=== PATIENT | male | born 1995 | race Caucasian/White ===

== ENCOUNTER 2020-09-07 19:42 | Emergency (ER) | payer OTHER, SELFPAY ==
--- NOTE | 2020-09-07 19:44 | ED.EYEPROB ---
HPI - Eye Problem General Chief complaint: Eye Problems Stated complaint: eye redness Time Seen by Provider: 09/07/20 19:45 Source: patient and RN notes reviewed Mode of arrival: ambulatory Limitations: no limitations History of Present Illness HPI Narrative: 25-year-old male presents with concern for right eye redness, irritation. Reports right eye was red for the last 3 days, and today became irritated and watery. Reports he slept in his contact lens before the redness started. He denies vision changes, however reports he has not been able to wear his contact lens in the right eye due to the redness and irritation. chief complaint: eye redness Related Data Allergies Allergy/AdvReac Type Severity Reaction Status Date / Time egg Allergy Unknown Dyspnea / Verified 08/20/17 10:04 SOB No Known Allergies Allergy Verified 08/02/12 13:03 Review of Systems Review of Systems: Narrative: CONSTITUTIONAL: Denies malaise, chills, sweats, or fever. EYES: Denies visual changes. Reports right eye irritation, redness, watery discharge. ENT: Denies rhinorrhea, congestion, sinus pain, otalgia or sore throat. SKIN: Denies rash or itching. NEUROLOGIC: Denies headache. All systems reviewed & are unremarkable except as noted in HPI and below PMFSH Social History Social History Smoking status: Heavy tobacco smoker Second hand tobacco smoke exposure: No Alcohol intake: never Comments At time of signature, agree with nursing past medical, surgical, social and family history. There is no relevant family history pertinent to the presenting complaint Exam Narrative: Exam Narrative: GENERAL: Well-appearing, well-nourished, and in no acute distress. HEAD: Normocephalic, atraumatic. EYES: PERRLA, left eye sclera and conjunctivae clear, and EOMI. No nystagmus. Right eye sclera conjunctive a injected with corneal abrasion noted at approximately 3:00 in relation to the pupil ENT: Mucous membranes moist. NECK: Supple. CHEST: No respiratory distress. Speaks in full sentences. HEART: Regular rate and rhythm. SKIN: Warm, dry, no rash. NEURO: Alert and oriented x3. PSYCH: Normal mood and affect Course Course Emergency Course: Patient is aware of diagnosis, understands and agrees to treatment plan. Anticipatory guidance given. Patient agrees to follow-up as directed and is aware of reasons to seek care at the emergency department. Portions of this record may have been created with voice recognition software Vital Signs Vital signs: Vital Signs Temperature 99.2 F 09/07/20 19:46 Pulse Rate 107 H 09/07/20 19:46 Respiratory Rate 16 09/07/20 19:46 Blood Pressure 132/76 09/07/20 19:46 Pulse Oximetry 99 09/07/20 19:46 Temperature 99.2 F 09/07/20 19:46 Pulse Rate 107 H 09/07/20 19:46 Respiratory Rate 16 09/07/20 19:46 Blood Pressure 132/76 09/07/20 19:46 Pulse Oximetry 99 09/07/20 19:46 Reviewed. MDM - Eye Problem MDM Narrative Medical decision making narrative: Consideration of the following conditions may be warranted for the presenting problem, they are not final diagnoses: Bacterial conjunctivitis, allergic conjunctivitis, viral conjunctivitis, foreign body, blepharitis, chalazion, hordeolum, corneal abrasion, preseptal cellulitis, orbital cellulitis. No evidence of proptosis, ophthalmoplegia, vision loss, pain with eye movement. Exam findings show no acute concerns or changes; patient is non-toxic appearing and is in no distress. Patient is appropriate for outpatient treatment and follow-up. Critical Care Time Critical Care Time Critical Care Time: No Discharge Plan Discharge Clinical Impression: Corneal abrasion Qualifiers: Encounter type: initial encounter Laterality: right Qualified Code(s): S05.01XA - Injury of conjunctiva and corneal abrasion without foreign body, right eye, initial encounter Patient Disposition: Home, Self-Care Condition: Stable Instructions: Corneal A
[2020-09-07 19:46] VITALS: BP 132/76; PULSE 107; RESP 16; TEMP 37.3; O2SAT 99
== END 2020-09-07 19:56 | disposition home or self-care (01) ==
PROVIDERS: Emergency Provider Nurse Practitioner
DX: S05.01XA Injury of conjunctiva and corneal abrasion without foreign body, right eye, initial encounter (principal); X58.XXXA Exposure to other specified factors, initial encounter; F17.200 Nicotine dependence, unspecified, uncomplicated
CPT/HCPCS: 99213; G0463